=== PATIENT | female | born 1990 | race Caucasian/White ===

== ENCOUNTER 2018-10-07 08:00 | Emergency (ER) | payer BC ==
[~2018-10-07] VITALS: Ht 162.6 cm; Wt 86.2 kg
--- OUTSIDE RECORDS SUMMARY | ~2018-10-07 | XMS | Clinical Summary ---
Demographics + + + | Address | [address] | | | [place] [address] | + + + | Home Phone | | + + + | Preferred Language | Unknown | + + + | Marital Status | Single | + + + | Orthodoxy Affiliation | Unknown | + + + | Race | Unknown | + + + | Ethnic Group | Unknown | + + + Author + + + | Author | [employer] | + + + | Organization | [facility] | + + + | Address | Unknown | + + + | Phone | Unavailable | + + + Support + + +---------+ + | Name | Relationship | Address | Phone | + + +---------+ + | Detailed,Message | ECON | Unknown | | + + +---------+ + | Lucas Pierre | ECON | Unknown | | + + +---------+ + Care Team Providers + +------+ + | Care Tower Director Name | Role | Phone | + +------+ + PP | Unavailable | + +------+ + Allergies No Known Allergies Current Medications + + +---------+---------+------+------+-------+ | Prescription | Sig. | Disp. | Refills | Star | End | Statu | | | | | | t | Date | s | | | | | | Date | | | + + +---------+---------+------+------+-------+ | Norgestimate-Eth | Take 1 tablet by | | | | | Activ | | Estradiol (SPRINTEC | mouth daily. | | | | | e | | 28 PO) | | | | | | | + + +---------+---------+------+------+-------+ | insulin lispro | Inject 26 Units into | 30 mL | 11 | 04/1 | | Activ | | (HUMALOG) 100 | the skin 3 (three) | | | 0/20 | | e | | UNIT/ML injection | times daily before | | | 14 | | | | | meals. | | | | | | + + +---------+---------+------+------+-------+ | insulin glargine | Inject 80 Units into | 30 mL | 11 | 04/1 | | Activ | | (LANTUS) 100 UNIT/ML | the skin nightly. | | | 0/20 | | e | | injection | | | | 14 | | | + + +---------+---------+------+------+-------+ Active Problems + + + | Problem | Noted Date | + + + | Diabetes mellitus type II, uncontrolled | 10/22/2013 | + + + Family History + + +------+ + | Medical History | Relation | Name | Comments | + + +------+ + | Diabetes type II | Maternal | | | | | Grandmoth | | | | | er | | | + + +------+ + | Diabetes type II | Mother | | | + + +------+ + | Heart disease | Mother | | | + + +------+ + + +------+ + + | Relation | Name | Status | Comments | + +------+ + + | Maternal Grandmother | | | | + +------+ + + | Mother | | | | + +------+ + + Social History + +-------+ +--------+------+ | Tobacco Use | Types | Packs/Day | Years | Date | | | | | Used | | + +-------+ +--------+------+ | Never Smoker | | | | | + +-------+ +--------+------+ + + +---------+ + | Alcohol Use | Drinks/We | oz/Week | Comments | | | ek | | | + + +---------+ + | No | | | | + + +---------+ + + + + | Sex Assigned at | Date Recorded | | | | + + + | Not on file | | + + + Last Filed Vital Signs + + + + | Vital Sign | Reading | Time Taken | + + + + | Blood Pressure | 126/70 | 10/22/2013 9:44 AM PDT | + + + + | Pulse | 86 | 10/22/2013 9:44 AM PDT | + + + + | Temperature | 36.6 C (97.8 F) | 10/22/2013 9:44 AM PDT | + + + + | Respiratory Rate | - | - | + + + + | Oxygen Saturation | 98% | 10/22/2013 9:44 AM PDT | + + + + | Inhaled Oxygen | - | - | | Concentration | | | + + + + | Weight | 97.7 kg (215 lb 6.4 | 10/22/2013 9:44 AM PDT | | | oz) | | + + + + | Height | 162.6 cm (5' 4") | 10/22/2013 9:44 AM PDT | + + + + | Body Mass Index | 36.97 | 10/22/2013 9:44 AM PDT | + + + + Plan of Treatment + + + + + | Health Maintenance | Due Date | Last Done | Comments | + + + + + | Vaccine: | | | | | Dtap/Tdap/Td (1 - | 9 | | | | Tdap) | | | | + + + + + | Cervical Cancer | | | | | Screening (Pap) | 1 | | | + + + + + | Vaccine: Influenza | | | | | (#1) | 8 | | | + + + + + Results Not on filefrom Last 3 Months Insurance + +--------+ +------+-------+ + | Payer | Benefi | Subscriber | Type | Phone | Address | | | t Plan | ID | | | | | | / | | | | | | | Group | | | | | + +--------+ +------+-------+ + | MEDICAID | [employer] | [id number] | | | [address] | | | [place] | | | | [place] | | | [place] | | | | [phone] | | | MEDICAL CSR | | | | | + +--------+ +------+-------+ + + +--------+ +--------+ + + | Guarantor Name | Accoun | Relation to | Date | Phone | Billing Address | | | t Type | Patient | of | | | | | | | | | | + +--------+ +--------+ + + | KYLE ROTHMAN | Person | Self [birth year] Home: | [address] | | | al/Fam | | 1989 | [phone] [place] | | | [place] | | | [phone] | [phone] | + +--------+ +--------+ + +
--- OUTSIDE RECORDS SUMMARY | ~2018-10-07 | XMS | Clinical Summary ---
Demographics + + + | Address | [address] | | | [place] [address] | + + + | Home Phone | | + + + | Preferred Language | Unknown | + + + | Marital Status | Single | + + + | Nondenominational Affiliation | Unknown | + + + | Race | Unknown | + + + | Ethnic Group | Unknown | + + + Author + + + | Author | [employer] | + + + | Organization | [facility] | + + + | Address [...] Team Providers + +------+ + | Care Threshing Department Supervisor Name | Role | Phone | + [...] +------+-------+ + | MEDICAID | [place] | [id number] | | | [address] | | | N | | | | [place] | | | [place] | | | | [phone] | | | HEALTH SERVICE WORKER | | | | | + +--------+ [...] | | | [place] | | | [phone] | [phone] | + +--------+ +--------+ + +
[~2018-10-07 08:00] MED LIST: AMOXICILLIN500 MG PO; HUMALOG100 UNITS/ IV; LANTUS100 UNITS/ SUB-Q; NOVOLOG100 UNIT/1 SUB-Q; PRENATAL CAPSU1 EACH PO
[2018-10-07] MEDS ORDERED: HUMULIN N100 UNIT/1 SUB-Q (08:18)
[2018-10-07] MEDS ORDERED: ONDANSETRON ODT8 MG PO (08:40)
[2018-10-07] MEDS ORDERED: NORCO 5-325 TA1 EACH PO (08:40)
== END 2018-10-07 08:50 | disposition home or self-care (01) ==
LOC: ED 08:00
DX: O03.9 Complete or unspecified spontaneous abortion without complication (principal); E10.9 Type 1 diabetes mellitus without complications
CPT/HCPCS: 99283

== ENCOUNTER 2019-11-26 10:39 | Day surgery (SDC) | payer BC, OTHER ==
[~2019-11-26] VITALS: Ht 162.6 cm; Wt 83.9 kg
--- NOTE | ~2019-11-26 | OR ---
[facility] [address] [place], [place] [address] Draft DATE OF OPERATION: 11/26/2019 SURGEON: Randy Ellington MD Patient of Dr. Ellington. PREOPERATIVE DIAGNOSIS: Missed at approximately 10 weeks gestation. POSTOPERATIVE DIAGNOSIS: Missed at approximately 10 weeks gestation. PROCEDURE: Suction D and C. ANESTHESIA: General. ESTIMATED BLOOD LOSS: 100 mL. SPECIMENS: Uterine contents. DRAINS: None. PACKING: None. FINDINGS: Vagina, no blood, no lesion. Cervix, thick, closed. Uterus, 8-week size, soft, symmetric, mobile. Adnexa nontender, no masses bilateral. There was a moderate amount of normal-appearing products of conception within the uterine cavity. COMPLICATIONS: None. DESCRIPTION OF PROCEDURE: The patient was brought into the operating room, placed in supine position. After PATIENT NAME: BRANT ROTHMAN OPERATIVE REPORT DATE OF : [birth year] REPORT #: [id number] PHYSICIAN: RANDY ELLINGTON MD PCP: EZIO STINSON PA-C REPORT IS CONFIDENTIAL AND NOT TO BE RELEASED WITHOUT AUTHORIZATION [facility] [address] [place] [address] Draft adequate general anesthesia was obtained, she was placed in the dorsal lithotomy position, prepped and draped in usual sterile fashion. A straight catheter was used to empty her bladder. A weighted speculum was placed in the vagina and the anterior lip of the cervix was grasped with an Allis clamp. The cervix was serially dilated up to a #9 dilator and then curved. A #9 curved suction tip curette was attached to the suction machine and suction was applied in the suction tested. The curette was then carefully introduced through the cervix into the uterine cavity, gently to the fundus, and then spun in a 360-degree fashion as slowly brought down to the lower uterine segment blood and products of conception, curette was then carefully placed back in to the fundus and the uterine cavity scraped towards the lower segment individually in all around the uterine cavity and then again in a circular fashion throughout the cavity until no additional tissue was removed and a normal feel of empty uterus was noted. At this point, all instruments were removed from the uterus and cervix. The cervix was observed and noted to have good hemostasis. The weighted speculum was removed and the uterus repalpated, noted to be much smaller and more firm. At this time, procedure was terminated. The patient tolerated the procedure well, went to recovery room in good condition. The sponge and instrument count were correct at the end of the procedure. The uterine contents were sent to Pathology for identification. MD JEREMIAH Stuart/KELLIE /[id number] cc: Ezio Stinson PA-C Copies: ~ PATIENT NAME: BRANT ROTHMAN OPERATIVE REPORT DATE OF : [birth year] REPORT #: [id number] PHYSICIAN: RANDY ELLINGTON MD PCP: EZIO STINSON PA-C REPORT IS CONFIDENTIAL AND NOT TO BE RELEASED WITHOUT AUTHORIZATION
[~2019-11-26 10:39] MED LIST changes: +HUMULIN N100 UNIT/1 SUB-Q; +NORCO 5-325 TA1 EACH PO; +ONDANSETRON ODT8 MG PO
[2019-11-26] MEDS ORDERED: HUMULIN 70100 UNIT/3 SUB-Q (11:00)
--- NOTE | 2019-11-26 12:47 | NUR ---
11/26/19 1247 Yuval Garcia RESPONDS TO TAP AND VOICE AT 1245. CRYING. REORIENTED TO TIME AND SITUATION. DENIES NAUSEA OR PAIN.
--- NOTE | 2019-11-26 13:15 | NUR ---
ICED WATER AND APPLESAUCE GIVEN. CALL LIGHT WITHIN REACH.
[2019-11-26] MEDS ORDERED: NORCO 5-325 TA1 EACH PO (13:23)
[2019-11-26] MEDS ORDERED: MOTRIN IB200 MG PO (13:23)
--- NOTE | 2019-11-26 14:56 | NUR ---
LE 1440: PATIENT IS UP TO THE BATHROOM WITH MY STANDBY. PATIENT AMBULATES WELL AND VOIDS 200 ML BLOOD TINGED URINE. PATIENT IS BACK IN HER ROOM. DISCHARGE INSTRUCTIONS ARE GIVEN AND PATIENT VERBALIZES UNDERSTANDING. PATIENT DRESSES SELF, NEW CHINYERE-PAD IS GIVEN AND SHE TRANSFERS HERSELF TO WHEELCHAIR AND THEN TO PERSONAL VEHICLE AND TOLERATES THAT WELL.
--- NOTE | 2019-11-26 15:54 | EKG ---
[facility] [address] [facility] [place], [place] [address] Signed Normal sinus rhythm Rightward axis Prolonged QT Abnormal ECG No previous ECGs available Confirmed by BUSHRA LEÓN MD ([id number]) on 11/26/2019 3:53:57 PM Electronically Signed By: BUSHRA LEÓN MD 11/26/19 1554 PATIENT NAME: BRANT ROTHMAN Electrocardiogram DATE OF : [birth year] PHYSICIAN: BUSHRA LEÓN MD REPORT #: [id number] REPORT IS CONFIDENTIAL AND NOT TO BE RELEASED WITHOUT AUTHORIZATION
--- NOTE | 2019-11-27 14:24 | PATH ---
[facility] [address] [place], [place] [address] Signed SPECIMEN(S): A PRODUCTS OF CONCEPTION SPECIMEN SOURCE: A. PRODUCTS OF CONCEPTION CLINICAL HISTORY: Missed AB. Suction DC. FINAL PATHOLOGIC DIAGNOSIS: Products of conception: - Fragments of immature chorionic villi and decidualized endometrium consistent with clinical missed . - Benign endocervical mucosa. JVR:[facility]:C2NR MICROSCOPIC EXAMINATION: Histologic sections of all submitted blocks are examined by light microscopy. These findings, together with the gross examination, support the pathologic diagnosis. GROSS DESCRIPTION: The specimen, labeled "ZB, products of conception," is received in formalin and consists of irregular shaped membranous and hemorrhagic tissue fragments that aggregate 8.5 x 5.2 x 1.4 cm. No tissue is grossly identified. Charging Manipulator sections are submitted in cassette (A1). JS (under the direct supervision of a pathologist) The Gross Description was prepared using a voice recognition system. The report was reviewed for accuracy; however, sound-alike word errors, addition and/or deletions may occur. If there is any question about this report, please contact Client Services. PERFORMING LABORATORY: The technical component was performed by [employer], [address] [place] [address] (Dining Service Worker: Vanessa Schaffer MD; CLIA# [id number]). Professional interpretation was performed by [facility], [address] [address] (Dining Service Worker: Theo Jimenez M.D.). Diagnostician: Theo Jimenez MD Pathologist PATIENT NAME: BRANT ROTHMAN PATHOLOGY DATE OF : [birth year] REPORT #: [id number] PHYSICIAN: ANTONI PATHOLOGY PCP: EZIO HENRIQUEZ PA-C REPORT IS CONFIDENTIAL AND NOT TO BE RELEASED WITHOUT AUTHORIZATION [address] [facility] [place] [place] [address] Signed Electronically Signed 11/27/2019 Copies: ~ PATIENT NAME: BRANT ROTHMAN PATHOLOGY DATE OF : [birth year] REPORT #: [id number] PHYSICIAN: ANTONI PATHOLOGY PCP: EZIO HENRIQUEZ PA-C REPORT IS CONFIDENTIAL AND NOT TO BE RELEASED WITHOUT AUTHORIZATION
== END 2019-11-26 14:50 | disposition home or self-care (01) ==
LOC: DS 10:39
PROVIDERS: General Practice
PROC: 10D17Z9 Manual Extraction of Products of Conception, Retained, Via Natural or Artificial Opening (ICD-10-PCS; principal; 2019-11-26 13:45)
DX: O02.1 Missed abortion (principal); E11.9 Type 2 diabetes mellitus without complications; E66.9 Obesity, unspecified; Z68.31 Body mass index [BMI] 31.0-31.9, adult; Z79.4 Long term (current) use of insulin
CPT/HCPCS: 93005; 93010; J1100; J1200; J1885; J2001; J2405; J2704; J3010; J7121

== ENCOUNTER 2022-02-28 18:20 | Emergency (ER) | payer OTHER ==
[~2022-02-28] VITALS: Ht 162.6 cm; Wt 83.9 kg
[~2022-02-28 18:20] MED LIST changes: +HUMULIN 70100 UNIT/3 SUB-Q; +MOTRIN IB200 MG PO
--- OUTSIDE RECORDS SUMMARY | 2022-02-28 18:22 | XMS ---
PreManage Notification: BRANT ROTHMAN Security Surfacer Operator Events No recent Security Events currently on file [facility] There are no care providers on record at this time. Ana has no Care Guidelines for this patient. EAnni VISIT COUNT (12 MO.) 1 [facility] [place] TOTAL 1 NOTE: Visits indicate total known visits. ED/C VISIT TRACKING (12 MO.) 02/28/2022 18:20 [facility] [place] TYPE: Emergency COMPLAINT: - HIGH BLOOD SUGAR INPATIENT VISIT TRACKING (12 MO.) No inpatient visits to display in this time frame [id number]
[2022-02-28] MEDS ORDERED: GABAPENTIN300 MG PO (18:36)
[2022-02-28] MEDS ORDERED: ALOGLIPTIN12.5 MG PO (18:36)
[2022-02-28] MEDS ORDERED: LAMICTAL25 MG PO (18:36)
[2022-02-28] MEDS ORDERED: PRAZOSIN HCL1 MG PO (18:36)
[2022-02-28] MEDS ORDERED: MACROBID 100 M100 MG PO (21:10)
== END 2022-02-28 21:27 | disposition home or self-care (01) ==
LOC: ED 18:20
DX: E11.65 Type 2 diabetes mellitus with hyperglycemia (principal); N39.0 Urinary tract infection, site not specified; G43.909 Migraine, unspecified, not intractable, without status migrainosus; Z79.4 Long term (current) use of insulin; Z79.899 Other long term (current) drug therapy
CPT/HCPCS: 36415; 80053; 81001; 82010; 82803; 85025; 96361; 96374; 96375; 99284-25; J0780; J1200; J1815; J1885; J7121

== ENCOUNTER 2022-04-16 22:20 | Emergency (ER) | payer OTHER ==
[~2022-04-16] VITALS: Ht 162.6 cm; Wt 69.0 kg
[~2022-04-16 22:20] MED LIST changes: +ALOGLIPTIN12.5 MG PO; +GABAPENTIN300 MG PO; +LAMICTAL25 MG PO; +MACROBID 100 M100 MG PO; +PRAZOSIN HCL1 MG PO
--- OUTSIDE RECORDS SUMMARY | 2022-04-16 22:24 | XMS ---
PreManage Notification: BRANT ROTHMAN Security Machine Castings Plasterer Events No recent Security Events currently on file [facility] There are no care providers on record at this time. Ana has no Care Guidelines for this patient. EAnni VISIT COUNT (12 MO.) 2 [facility] [place] TOTAL 2 NOTE: Visits indicate total known visits. ED/UCC VISIT TRACKING (12 MO.) 04/16/2022 22:23 [facility] [place] TYPE: Emergency COMPLAINT: - RT ANKLE INJURY 02/28/2022 18:20 [facility] [place] TYPE: Emergency COMPLAINT: - HIGH BLOOD SUGAR DIAGNOSES: - Urinary tract infection, site not specified - Migraine, unspecified, not intractable, without status migrainosus - halfway (current) use of insulin - Type 2 diabetes mellitus with hyperglycemia - Other intermission coordinator (current) drug therapy INPATIENT VISIT TRACKING (12 MO.) No inpatient visits to display in this time frame [id number]
[2022-04-17] MEDS ORDERED: MELOXICAM15 MG PO (00:55)
== END 2022-04-17 01:27 | disposition home or self-care (01) ==
LOC: ED 22:20
DX: S93.401A Sprain of unspecified ligament of right ankle, initial encounter (principal); X50.9XXA Other and unspecified overexertion or strenuous movements or postures, initial encounter; Y99.0 Civilian activity done for income or pay; E11.9 Type 2 diabetes mellitus without complications; I10 Essential (primary) hypertension; Z79.899 Other long term (current) drug therapy
CPT/HCPCS: 73610; 99283-25; A9270

== ENCOUNTER 2022-08-25 23:04 | Emergency (ER) | payer OTHER ==
[~2022-08-25] VITALS: Ht 162.6 cm; Wt 81.6 kg
[~2022-08-25 23:04] MED LIST changes: +MELOXICAM15 MG PO
--- OUTSIDE RECORDS SUMMARY | 2022-08-25 23:06 | XMS ---
PreManage Notification: BRANT ROTHMAN Security Rehabilitation Program Coordinator Events No recent Security Events currently on file [facility] There are no care providers on record at this time. Ana has no Care Guidelines for this patient. EAnni VISIT COUNT (12 MO.) 3 [facility] [place] TOTAL 3 NOTE: Visits indicate total known visits. ED/UCC VISIT TRACKING (12 MO.) 08/25/2022 23:05 [facility] [place] TYPE: Emergency COMPLAINT: - OD 04/16/2022 22:23 [facility] [place] TYPE: Emergency COMPLAINT: - RT ANKLE INJURY DIAGNOSES: - Essential (primary) hypertension - Civilian activity done for income or pay - Pain in right ankle and joints of right foot - Type 2 diabetes mellitus without complications - Sprain of unspecified ligament of right ankle, initial encounter - Other and unspecified overexertion or strenuous movements or postures, initial encounter - Other terminal computer operator (current) drug therapy 02/28/2022 18:20 [facility] [place] TYPE: Emergency COMPLAINT: - HIGH BLOOD SUGAR DIAGNOSES: - Type 2 diabetes mellitus with hyperglycemia - Other nursing home (current) drug therapy - Urinary tract infection, site not specified - Migraine, unspecified, not intractable, without status migrainosus - [facility] (current) use of insulin INPATIENT VISIT TRACKING (12 MO.) No inpatient visits to display in this time frame [id number]
--- NOTE | 2022-08-27 07:16 | EKG ---
[facility] [address] [facility] [place], [place] [address] Signed Sinus tachycardia Otherwise normal ECG When compared with ECG of 26-NOV-2019 11:16, No significant change was found Confirmed by LASHAUN NEWMAN MD ([id number]) on 08/27/2022 7:15:51 AM Electronically Signed By: LASHAUN NEWMAN MD 08/27/22 0716 PATIENT NAME: BRANT ROTHMAN Electrocardiogram DATE OF : [birth year] PHYSICIAN: LASHAUN NEWMAN MD REPORT #: [id number] REPORT IS CONFIDENTIAL AND NOT TO BE RELEASED WITHOUT AUTHORIZATION
--- NOTE | 2022-08-27 07:16 | EKG ---
[facility] [address] [facility] [place], [place] [address] Signed Sinus tachycardia Otherwise normal ECG When compared with ECG of 25-AUG-2022 23:16, (Unconfirmed) No significant change was found Confirmed by LASHAUN NEWMAN MD ([id number]) on 08/27/2022 7:16:09 AM Electronically Signed By: LASHAUN NEWMAN MD 08/27/22 0716 PATIENT NAME: BRANT ROTHMAN Electrocardiogram DATE OF : [birth year] PHYSICIAN: LASHAUN NEWMAN MD REPORT #: [id number] REPORT IS CONFIDENTIAL AND NOT TO BE RELEASED WITHOUT AUTHORIZATION
== END 2022-08-26 08:57 | disposition home or self-care (01) ==
LOC: ED 23:04
DX: T44.6X2A Poisoning by alpha-adrenoreceptor antagonists, intentional self-harm, initial encounter (principal); Z20.822 Contact with and (suspected) exposure to COVID-19; E11.9 Type 2 diabetes mellitus without complications; I10 Essential (primary) hypertension; Z79.899 Other long term (current) drug therapy
CPT/HCPCS: 36415; 80053; 81001; 83735; 84132; 84443; 84703; 85025; 93005; 93010; 96365; 96366; 96368; 99285-25; A9270; C9803; G0480; J3475; J3480; J7030; U0003

== ENCOUNTER 2023-04-20 02:12 | Emergency (ER) | payer OTHER ==
[~2023-04-20] VITALS: Ht 162.6 cm; Wt 80.7 kg
--- OUTSIDE RECORDS SUMMARY | ~2023-04-20 | XMS | Continuity of Care Document ---
Demographics + + + | Address | [address] | | | [place] [address] | + + + | Preferred Language | Unknown | + + + | Marital Status | Never | + + + | Yazidism Affiliation | Unknown | + + + | Race | Unknown | + + + | Ethnic Group | Unknown | + + + Author + + + | Author | [facility] | + + + | Organization | [facility] | + + + | Address | [address] | | | [place] [address] | + + + | Phone | | + + + Care Team Providers + + + + | Care Bone Drier Name | Role | Phone | + + + + Unavailable | Unavailable | + + + + Unavailable | Unavailable | + + + + Allergies No information. Encounters No information. Functional Status No information. Immunizations No information. Medications + + + + | date | description | facility | + + + + | 2023-01-23 00:00 | Ketorolac Tromethamine 60 | [facility] | | | MG/2ML IM SOLN | | + + + + | 2023-02-19 00:00 | NovoLIN R FlexPen 100 | [facility] | | | UNIT/ML Injection Solution | | | | Pen-injector | | + + + + | 2023-02-19 00:00 | 3 ML insulin, regular, | [facility] | | | human 100 UNT/ML Pen | | | | Injector [Novolin R] | | + + + + | 2023-02-22 00:00 | Lisinopril 10 MG Oral | [facility] | | | Tablet | | + + + + | 2023-02-22 00:00 | lisinopril 10 MG Oral | [facility] | | | Tablet | | + + + + | 2023-01-23 00:00 | sumatriptan 25 MG Oral | [facility] | | | Tablet | | + + + + | 2023-01-23 00:00 | SUMAtriptan Succinate 25 | [facility] | | | MG Oral Tablet | | + + + + | 2023-02-22 00:00 | Atorvastatin Calcium 10 MG | [facility] | | | Oral Tablet | | + + + + | 2023-02-22 00:00 | atorvastatin 10 MG Oral | [facility] | | | Tablet | | + + + + | 2023-01-23 00:00 | 2 ML ketorolac | [facility] | | | tromethamine 30 MG/ML | | | | Prefilled Syringe | | + + + + Problems + + + + | date | description | facility | + + + + | 2023-01-23 00:00 | Status migrainosus | [facility] | | | (disorder) | | + + + + | 2023-01-23 00:00 | COMMON MIGRAINE (WITHOUT | [facility] | | | AURA) WITH STATUS | | | | MIGRAINOSUS | | + + + + | 2023-01-23 00:00 | Migraine without aura, not | [facility] | | | refractory (disorder) | | + + + + | 2023-01-23 00:00 | Common Migraine W/o Aura | [facility] | | | W/o Intractable Migraine W/ | | | | Status Migrainosus | | + + + + | 2023-02-22 00:00 | type 1 diabetes | [facility] | | | uncontrolled | | + + + + | 2023-02-22 00:00 | PERFORATION, TYMPANUM | [facility] | | | | | + + + + | 2023-02-22 00:00 | Type I diabetes mellitus | [facility] | | | uncontrolled (finding) | | + + + + | 2023-02-22 00:00 | Perforation of tympanic | [facility] | | | membrane (disorder) | | + + + + | 2023-02-22 00:00 | Diabetes Mellitus Type 1 - | [facility] | | | Uncontrolled | | + + + + | 2023-02-22 00:00 | Tympanic Membrane | [facility] | | | Perforation | | + + + + Procedures + + + + | date | description | facility | + + + + | 2023-01-23 00:00 | Therapeutic; Prophylactic | [facility] | | | or Diagnostic Injection; | | | | SubQ/IM | | + + + + | 2023-01-23 00:00 | Toradol (Ketorolac | [facility] | | | Tromethamine) Per 15 MG | | + + + + Results/Labs No information. Social History + + + + | date | description | facility | + + + + | 2023-01-23 00:00 | Unknown if ever smoked | [facility] | | | | | + + + + | 2023-01-23 00:00 | Smoker (finding) | [facility] | | | | | + + + + | 2023-02-22 00:00 | Unknown if ever smoked | [facility] | | | | | + + + + | 2023-02-22 00:00 | Smoker (finding) | [facility] | | | | | + + + + Vital Signs + + + +---------+ | date | measurement | value | units | + + + +---------+ | 2023-01-23 00:00 | BMI | 30.3 | 1 | + + + +---------+ | 2023-01-23 00:00 | BP_diastolic | 74 | mmHg | + + + +---------+ | 2023-01-23 00:00 | BP_systolic | 128 | mmHg | + + + +---------+ | 2023-01-23 00:00 | BSA | 1.9 | 1 | + + + +---------+ | 2023-01-23 00:00 | heart_rate | 109 | /min | + + + +---------+ | 2023-01-23 00:00 | height_metric | 162.56 | cm | + + + +---------+ | 2023-01-23 00:00 | height_standard | 64 | in | + + + +---------+ | 2023-01-23 00:00 | o2_saturation | 95 | % | + + + +---------+ | 2023-01-23 00:00 | respiration_rate | 16 | /min | + + + +---------+ | 2023-01-23 00:00 | temperature_metric | 36.61 | C | | | | | | + + + +---------+ | 2023-01-23 00:00 | | 97.9 | F | | | temperature_standar | | | | | d | | | + + + +---------+ | 2023-01-23 00:00 | weight_metric | 80 | kg | + + + +---------+ | 2023-01-23 00:00 | weight_standard | 176.38 | lb | + + + +---------+ | 2023-02-22 00:00 | BMI | 30.7 | 1 | + + + +---------+ | 2023-02-22 00:00 | BP_diastolic | 102 | mmHg | + + + +---------+ | 2023-02-22 00:00 | BP_systolic | 160 | mmHg | + + + +---------+ | 2023-02-22 00:00 | BP_systolic | 166 | mmHg | + + + +---------+ | 2023-02-22 00:00 | BSA | 1.9 | m2 | + + + +---------+ | 2023-02-22 00:00 | heart_rate | 77 | /min | + + + +---------+ | 2023-02-22 00:00 | height_metric | 162.56 | cm | + + + +---------+ | 2023-02-22 00:00 | height_standard | 64 | in | + + + +---------+ | 2023-02-22 00:00 | o2_saturation | 98 | % | + + + +---------+ | 2023-02-22 00:00 | respiration_rate | 16 | /min | + + + +---------+ | 2023-02-22 00:00 | temperature_metric | 37.06 | C | | | | | | + + + +---------+ | 2023-02-22 00:00 | | 98.7 | F | | | temperature_standar | | | | | d | | | + + + +---------+ | 2023-02-22 00:00 | weight_metric | 81.19 | kg | + + + +---------+ | 2023-02-22 00:00 | weight_standard | 179 | lb | + + + +---------+"
[~2023-04-20 02:12] MED LIST changes: +CYCLOBENZAPRINE10 MG PO; +WELLBUTRIN XL300 MG PO
--- OUTSIDE RECORDS SUMMARY | 2023-04-20 02:14 | XMS ---
PreManage Notification: BRANT ROTHMAN Security Fitness Plan Coordinator Events No recent Security Events currently on file CRITERIA MET - [facility] CARE PROVIDERS -, Scar- Dentist: City Collector [facility] PHONE: [phone] Heike Jolly-C Nurse Practitioner: Family Current PHONE: [phone] Ana has no Care Guidelines for this patient. Micaela VISIT COUNT (12 MO.) 4 [facility] [place] ) TOTAL 6 NOTE: Visits indicate total known visits. ED/UCC VISIT TRACKING (12 MO.) 04/20/2023 02:13 [facility] [place] TYPE: Emergency COMPLAINT: - VAGINAL BLEEDING 02/01/2023 10:36 [facility] [place] ([facility]) TYPE: Emergency DIAGNOSES: - Acute suppurative otitis media without spontaneous rupture of ear drum, left ear - Dizziness and giddiness - Dizziness - ear pain, dizziness - Otalgia 01/28/2023 21:29 [facility] [place] TYPE: Emergency COMPLAINT: - EAR PAIN L SIDE DIAGNOSES: - Essential (primary) hypertension - care home (current) use of insulin - Otalgia, left ear - Other predatory animal exterminator (current) drug therapy - Type 2 diabetes mellitus without complications - Unspecified otitis externa, left ear 11/27/2022 22:24 [facility] [place] TYPE: Emergency COMPLAINT: - BACK PAIN/ INJURY DIAGNOSES: - Essential (primary) hypertension - care home (current) use of insulin - Other fall on same level, initial encounter - Other senior care (current) drug therapy - Strain of muscle and tendon of back wall of thorax, initial encounter - Type 2 diabetes mellitus without complications 10/24/2022 20:54 [facility] [place] ([place] ) TYPE: Emergency DIAGNOSES: - Disorder of pigmentation, unspecified - Disorder of pigmentation, unspecified - Toe injury - Toe Pain 08/25/2022 23:05 [facility] [place] TYPE: Emergency COMPLAINT: - OD DIAGNOSES: - Contact with and (suspected) exposure to COVID-19 - Essential (primary) hypertension - Other senior care (current) drug therapy - Poisoning by alpha-adrenoreceptor antagonists, intentional self-harm, initial encounter - Type 2 diabetes mellitus without complications INPATIENT VISIT TRACKING (12 MO.) No inpatient visits to display in this time frame [id number]
[2023-04-20] MEDS ORDERED: LANTUS100 UNITS/ SUB-Q (02:28)
[2023-04-20] MEDS ORDERED: MACROBID 100 M100 MG PO (02:31)
[2023-04-20 02:43] LABS: BILIRUBIN, URINE NEGATIVE (negative); BLOOD/HGB, URINE LARGE (Negative); KETONE, URINE SMALL (Negative); LEUK ESTERASE, URINE TRACE (negative); NITRITE, URINE POSITIVE (negative)
[2023-04-20 02:55] LABS: EPITHELIAL CELLS, URINE SQUAMOUS 2+ /lpf (0-1+); RED BLOOD CELLS, URINE >50 /hpf (0-5)
[2023-04-20 02:56] VITALS: BP 179/100
[2023-04-20 02:56] LABS: REFLEX CULTURE, URINE No (No)
== END 2023-04-20 03:04 | disposition home or self-care (01) ==
LOC: ED 02:12
PROVIDERS: Internal Medicine
DX: N39.0 Urinary tract infection, site not specified (principal); I10 Essential (primary) hypertension; E11.40 Type 2 diabetes mellitus with diabetic neuropathy, unspecified; Z79.899 Other long term (current) drug therapy; Z79.4 Long term (current) use of insulin
CPT/HCPCS: 81001; 87088; 99283